=== PATIENT | female | born 1970 | race Two or more races ===

== ENCOUNTER 2020-03-23 16:28 | Emergency (ER) | payer MEDICAID ==
[2020-03-23 16:33] VITALS: BP 128/85
[2020-03-23] MEDS ORDERED: DEXAMETHASONE SOD PHOS INJ 10 MG/1 ML VIAL IM ONE (17:01)
[2020-03-23] MEDS ORDERED: KETOROLAC TROMETHAMINE 60 MG/2 ML SDV IM ONE (17:01)
--- NOTE | 2020-03-23 17:07 | ER Document Report ---
HPI - HPI Time Seen by Provider: 03/23/20 16:56 Notes: 49-year-old female presents to the emergency room today for evaluation of left buttock pain that radiates left knee for the last 4 days. Denies any trauma or falls. Denies any dysuria, vaginal bleeding vaginal discharge she reports is wo rse with sitting. Reports pain is sharp and stabbing. Has not tried any icing, heat, stretching. Patient denies any lower back pain issues. States she took Advil today without full relief. Reports pain is 3 out of 5, sharp. Patient states she is postmenopausal. Patient is visiting from [facility]. denies fevers, chills, chest pain,palpitations, shortness of breath, dyspnea, nausea, vomiting, diarrhea, abdominal pain, hematuria,blurred vision, double vision, loss of vision, speech changes, LH, dizziness, syncope, headaches, wheezing, ST, URI, neck pain, weakness, bowel or bladder dysfunction, saddle anesthesia, numbness or tingling in bilateral upper or lower extremities equally, muscle paralysis, weakness in bilateral upper or lower extremities equally or rash. Past Medical History - General Information source: Patient - Social History Smoking Status: Unknown if Ever Smoked Family History: Reviewed & Not Pertinent Vertical Provider Document - CONSTITUTIONAL Agree With Documented VS: Yes Exam Limitations: No Limitations General Appearance: WD/WN Notes: MEDICATIONS: I agree with the patient medications as charted by the RN. ALLERGIES: I agree with the allergies as charted by the RN. PAST MEDICAL HISTORY/PAST SURGICAL HISTORY: Reviewed and agree as charted by RN. SOCIAL HISTORY: Reviewed and agree as charted by RN. FAMILY HISTORY: No significant familial comorbid conditions directly related to patient complaint EXAM: Reviewed vital signs as charted by RN. PHYSICAL EXAMINATION: reviewed vital signs by RN GENERAL: Well-appearing, well-nourished and in no acute distress. HEAD: Atraumatic, normocephalic. EYES: Pupils equal round and reactive to light, extraocular movements intact, conjunctiva are normal. ENT: Nares patent, oropharynx clear without exudates. Moist mucous membranes. NECK: Normal range of motion, supple without lymphadenopathy LUNGS: Breath sounds clear to auscultation bilaterally and equal. No wheezes rales or rhonchi. HEART: Regular rate and rhythm without murmurs ABDOMEN: Soft, nontender, nondistended abdomen. No guarding, no rebound. No masses appreciated. Female : deferred Musculoskeletal: Normal range of motion, no pitting or edema. No cyanosis. No ain with flexion and extension at 90 degrees. Normal hip rotation. DTR +2 in BLE equally. Strength 5 out of 5 both distally and proximally to bilateral lower extremities normal motor and sensory function in BLE equally. Distal pulses + 2 BLE equally. Noted paraspinal tenderness near L2 and L3. Strength 5 out of 5 in bilateral lower extremities equally. no spinal tenderness. No CVA tenderness bilaterally. Femoral pulses + 2 bilaterally and equally. No abrasions, scars, lacerations, ecchymosis of any recent trauma. normal gait. NEUROLOGICAL: Cranial nerves grossly intact. Normal speech, normal gait. Normal sensory, motor exams PSYCH: Normal mood, normal affect. SKIN: Warm, Dry, normal turgor, no rashes or lesions noted. Course - Re-evaluation Re-evalutation: 03/23/20 17:20 Afebrile vital stable no distress. Nurses notes reviewed. pt appears to have classic sciatica symptoms. Presentation of a well appearing patient complaining of left buttock pain that radiates to her left knee. No rapid progression of symptoms, systemic symptoms including fevers, chills, weight loss, history of recent bacterial infection, bilateral symptoms, numbness, weakness, difficulty walking, urinary retention or bowel incontinence, personal history of cancer, immunosuppression, diabetes, known AAA, or history of IV drug use. Exam is without point tenderness over vertebral bodies, pulsatile abdominal mass, and patient has symmetric and intact lower extremity strength, sensation, and reflexes without clonus. 2+ symmetric medial malleolar and dorsalis pedis pulses Based on history and physical, I have a very low suspicion of a concerning etiology of pain including epidural compression syndrome, spinal infection, transverse myelitis, malignancy, abdominal aortic aneurysm, renal colic, acute lower extremity claudication, neurogenic claudication, ankylosing spondylitis, or other intra-abdominal process. Due to absence of concerning risk factors in history and physical as well as absence of rapidly progressive, severe, or bilateral symptoms, will defer imaging at this point. - Vital Signs Vital signs: Temp Pulse Resp BP Pulse Ox 98.5 F 81 14 128/85 H 99 03/23/20 16:32 03/23/20 16:32 03/23/20 16:32 03/23/20 16:32 03/23/20 16:32 - Laboratory Results Critical Laboratory Results Reviewed: No Critical Results - Radiology Results Critical Radiology Results Reviewed: No Critical Results Discharge - Discharge Clinical Impression: Left sided sciatica Condition: Stable Disposition: HOME, SELF-CARE Instructions: Muscle Relaxers ([facility]), Muscle Strain ([facility]), Sciatica ([facility]), Stretching Exercises for the Back ([facility]) Additional Instructions: Sciatica Your symptoms suggest "sciatica." The pain of sciatica typically radiates down the leg. Numbness in the foot or calf may also occur. Sciatica is caused by irritation of the sciatic nerve or its branches. The irritation can be due to a herniated disk in the spine, swelling and inflammation in the muscles surrounding the sciatic nerve, or direct injury of the nerve itself. Most cases of sciatica will resolve with medical treatment. Bed rest is usually recommended initially. Surgery is only necessary when the condition will not improve with rest and antiinflammatory medication. Muscle relaxers are often given if muscle soreness is present. Re-examination is necessary if you develop increasing numbness, localized weakness in the foot or ankle, or if the pain does not respond to rest. You were given a shot of a strong NSAID called Toradol today as well as a strong steroid called Decadron today as well as being prescribed muscle relaxers and anti-inflammatories. Apply heat 20 minutes on 20 minutes off several times a day. Advised to do lower back stretching. If he still have persistent pain after 3 to 4 days, is advised that he return to the emergency room or your primary care provider for reevaluation. Do not drive, drink alcohol or operate heavy machinery while taking muscle relaxers as it can cause sedation or impairment of cognitive function Return immediately for any new or worsening symptoms. Follow up with primary care provider, call tomorrow to make followup appointment. Prescriptions: Naproxen 500 mg PO BID #10 tablet Methocarbamol [Robaxin 500 mg Tablet] 500 mg PO QID PRN #15 tablet PRN Reason: Referrals: ROMULO MELENDEZ MD [ACTIVE STAFF] - Follow up as needed XENIA CHANDLER MD [ACTIVE STAFF] - Follow up as needed
== END 2020-03-23 17:28 | disposition home or self-care (01) ==
LOC: ER 16:28
DX: M54.32 Sciatica, left side (principal)
CPT/HCPCS: 99284; 96372; J1885; J1100

== ENCOUNTER 2020-03-26 18:42 | Emergency (ER) | payer SELFPAY ==
[2020-03-26] MEDS ORDERED: HYDROCODONE/ACETAMINOPHEN 5-325 MG TABLET PO ONE ×2 (20:04→22:45)
--- NOTE | 2020-03-26 20:10 | ER Document Report ---
ED Neck/Back Problem - General Chief Complaint: Leg Pain Stated Complaint: LEG PAIN Time Seen by Provider: 03/26/20 19:58 Primary Care Provider: [facility] [Provider Group] - Follow up as needed Mode of Arrival: Ambulatory Information source: Patient - HPI Patient complains to provider of: Pain, Lower back Notes: Patient here with complaints of low back pain and pain going down the left leg. The patient is currently visiting from [place]. She was seen in this emergency department 3 days ago and was given a shot of steroid and pain medication was discharged home with NSAIDs. She states that the pain medication is not helping at all. She states that her pain in her low back and left leg are worse. Pain is constant, moderate to severe, worse with movement, nothing makes it better. She denies any recent falls or injury. She does have a history of herniated disc in the past. She denies abdominal pain. She denies nausea, vomiting, diarrhea. No dysuria or hematuria. No chest pain or shortness of breath. No bowel or bladder dysfunction. No rash. No numbness, tingling, weakness. No severe headache. No other complaints. - Related Data Allergies/Adverse Reactions: No Known Allergies Allergy (Verified 03/23/20 17:09) Past Medical History - Social History Smoking Status: Current Some Day Smoker Frequency of alcohol use: Occasional Drug Abuse: None Family History: Reviewed & Not Pertinent Review of Systems - Review of Systems -: Yes All other systems reviewed and negative Physical Exam - Vital signs Vitals: Temp Pulse Resp BP Pulse Ox 98.7 F 86 18 125/87 H 98 03/26/20 18:55 03/26/20 18:55 03/26/20 18:55 03/26/20 18:55 03/26/20 18:55 - Notes Notes: GENERAL: alert, cooperative, nontoxic, no distress. HEAD: normocephalic, atraumatic EYES: conjunctiva pink without discharge, no external redness or swelling. EARS: no external swelling, no external redness NOSE: atraumatic, no external swelling MOUTH/THROAT: mucous membranes moist and pink, posterior pharynx without erythema, swelling, exudate. No trismus or drooling. NECK: soft, supple, full range of motion, no meningismus. CHEST: no distress, lungs clear and equal throughout. No wheezing, rales, rhonchi. CARDIAC: regular rate and rhythm, no murmur, normal capillary refill, normal pulses. No peripheral edema noted. ABDOMEN: soft, nontender, no pusatile mass. BACK: No CVA tenderness. Slight limited range of motion of the lower back secondary to pain. Tenderness palpation to the left lumbar paraspinal muscles in the left sciatic/sacroiliac area. EXTREMITIES: full range of motion of all extremities. No redness, no swelling. NEURO: alert and oriented A&O x 3, no focal deficits, full range of motion of all extremities. 5 out of 5 flexion and extension of the lower extremities bilaterally. Patellar and Achilles deep tendon reflexes are +2 bilaterally. Normal sensation with no saddle anesthesia. Patient can dorsiflex the great toes bilaterally. PYSCH: appropriate mood, affect. Patient is cooperative. SKIN: pink, warm, dry, no rash. Course - Re-evaluation Re-evalutation: 03/26/20 22:20 Patient resting comfortably this time. Of gone over results with the patient. Questions have been answered. Will discharge home. 03/26/20 22:40 Patient is nontoxic-appearing stable vitals. Here with complaints of left hip pain that radiates down her leg. no Risk/Sign of cauda equina, epidural abscess/leak, discitis, osteomyelitis, pyelonephritis, AAA. X-ray lumbar spine shows some osteoarthritis with no acute findings. Overall the patient looks well. Patient has normal neurological exam. There is no signs of infection. Patient will be given 2 [place] here in the emergency department we discharged home with prednisone. She also is requesting a refill on her Naprosyn and muscle relaxers which she will be given. She started follow-up with her primary care doctor when she gets back to [place]. Follow-up sooner for worsening pain, fever, redness, numbness, tingling, weakness, any further concerns. - Vital Signs Vital signs: Temp Pulse Resp BP Pulse Ox 98.7 F 86 18 125/87 H 98 03/26/20 18:55 03/26/20 18:55 03/26/20 18:55 03/26/20 18:55 03/26/20 18:55 - Laboratory Results Critical Laboratory Results Reviewed: No Critical Results - Radiology Results Critical Radiology Results Reviewed: No Critical Results Discharge - Discharge Clinical Impression: Lumbar radicular pain Condition: Stable Disposition: HOME, SELF-CARE Instructions: Radiculopathy ([facility]) Additional Instructions: Take medication as prescribed. Follow-up with your doctor at the next available appointment. Follow-up sooner for worsening pain, fever, difficulty controlling bowels or bladder, persistent vomiting, or any further concerns. Prescriptions: Prednisone [Deltasone 20 mg Tablet] 40 mg PO DAILY #10 tablet Prednisone [Deltasone 20 mg Tablet] 40 mg PO DAILY #10 tablet Naproxen [Naprosyn] 500 mg PO BID #20 tablet Tizanidine HCl [Zanaflex 4 Mg Tablet] 4 mg PO BID PRN #10 tablet PRN Reason: Referrals: [facility] [Provider Group] - Follow up as needed
--- NOTE | 2020-03-26 21:46 | RADIOLOGY REPORT (SQ) ---
INDICATION: low back pain. TECHNIQUE: 5 view(s) of the lumbar spine. Both obliques COMPARISON: None FINDINGS: No evidence of acute displaced fracture. Dextroconvex curvature. No anteroposterior subluxation. Osteoarthritis. Vertebral body heights are well-maintained. Postsurgical change the bowel. IMPRESSION: No evidence of acute displaced fracture of the lumbar spine. Osteoarthritis
[2020-03-26 22:53] VITALS: BP 130/90
== END 2020-03-26 22:53 | disposition home or self-care (01) ==
LOC: ER 18:42
DX: M54.16 Radiculopathy, lumbar region (principal); F17.200 Nicotine dependence, unspecified, uncomplicated
CPT/HCPCS: 72110; 99283